=== PATIENT | female | born 1985 ===

== ENCOUNTER → 2020-12-16 08:13 | Outpatient (CLI) | payer BC, SELFPAY ==
[2020-12-16 19:56] LABS: COVID19 - ORCAS (NP or Nasal) POSITIVE (Negative)
== END ==
PROVIDERS: Visit Provider Physician Assistant Medical
DX: U07.1 COVID-19 (principal); Z20.822 Contact with and (suspected) exposure to COVID-19
CPT/HCPCS: U0003